=== PATIENT | female | born 1970 | race African-American/Black ===

== ENCOUNTER 2019-06-19 14:33 | Emergency (ER) | payer MEDICAID, OTHER ==
[~2019-06-19] VITALS: Ht 167.6 cm; Wt 107.0 kg
[2019-06-19] MEDS ORDERED: KETOROLAC 30MG/ML VIAL IM ONE (21:15)
[2019-06-19 23:32] VITALS: BP 136/79
== END 2019-06-19 23:43 | disposition home or self-care (01) ==
LOC: ER 17:02
DX: R07.81 Pleurodynia (principal)
CPT/HCPCS: 71101; 96372; 99283; J1885

== ENCOUNTER 2022-04-14 12:50 | Emergency (ER) | payer MEDICAID ==
[~2022-04-14] VITALS: Ht 165.1 cm; Wt 100.0 kg
[2022-04-14 13:32] LABS: BASOPHILS % 0.7 % (0.0-2.0); EOSINOPHILS % 1.3 % (0.0-5.0); HEMATOCRIT. 35.4 % (36.0-48.0); HEMOGLOBIN. 12.1 g/dL (12.0-16.0); MEAN CORPUSCULAR HEMOGLOBIN 25.6 pg (28.0-32.0); MEAN CORPUSCULAR VOLUME 74.7 fL (81.0-99.0); MEAN PLATELET VOLUME 9.1 fl (7.4-10.4); MONOCYTES % 4.3 % (2.0-8.0); NEUTROPHILS % 70.7 % (40.0-76.0); PLATELET 229 x1000/uL (130-400); RED BLOOD CELL COUNT 4.74 mill/uL (4.2-5.4); RED CELL DISTRIBUTION WIDTH 16.2 % (11.6-14.6)
[2022-04-14 13:39] LABS: CHLORIDE 104 mEq/L (98-107)
[2022-04-14] MEDS ORDERED: POTASSIUM CHLORIDE 20MEQ TABLET SR PO NR (14:45)
[2022-04-14 16:50] VITALS: BP 138/66
== END 2022-04-14 17:01 | disposition home or self-care (01) ==
LOC: ER 13:12
DX: R07.89 Other chest pain (principal); E87.6 Hypokalemia; I10 Essential (primary) hypertension; E11.9 Type 2 diabetes mellitus without complications; Z88.1 Allergy status to other antibiotic agents; Z91.041 Radiographic dye allergy status; Z91.040 Latex allergy status; Z88.8 Allergy status to other drugs, medicaments and biological substances
CPT/HCPCS: 36415; 71045; 80053; 83880; 84484; 85025; 93005; 99285

== ENCOUNTER 2025-06-14 22:59 | Inpatient (IN) | payer MEDICAID ==
[~2025-06-14] VITALS: Ht 165.1 cm; Wt 81.6 kg
[2025-06-14 23:05] VITALS: O2SAT 100
[2025-06-14 23:50] LABS: BASOPHILS % 0.7 % (0.0-2.0); EOSINOPHILS % 0.9 % (0.0-5.0); HEMATOCRIT. 32.5 % (36.0-48.0); HEMOGLOBIN. 11.2 g/dL (12.0-16.0); LYMPHOCYTES % 37.6 % (20.0-50.0); MEAN PLATELET VOLUME 8.0 fl (7.4-10.4); MONOCYTES % 4.7 % (2.0-8.0); NEUTROPHILS % 56.1 % (40.0-76.0); PLATELET 280 x1000/uL (130-400); RED BLOOD CELL COUNT 3.84 mill/uL (4.2-5.4); RED CELL DISTRIBUTION WIDTH 20.2 % (11.6-14.6)
[2025-06-15 00:06] LABS: CREATININE 0.7 mg/dL (0.6-1.0); UREA NITROGEN BLOOD 8 mg/dL (9-23)
[2025-06-15 00:07] LABS: TROPONIN I HIGH SENSITIVITY < 4 ng/L (3.0-34)
[2025-06-15 00:08] LABS: ASPARTATE AMINOTRANSFERASE 9 IU/L (<34); BILIRUBIN DIRECT < 0.1 mg/dL (<=3.0)
[2025-06-15 00:09] LABS: BILIRUBIN TOTAL 0.3 mg/dL (0.1-1.0); PROTEIN TOTAL 7.0 g/dL (6.0-8.3)
[2025-06-15] MEDS: ACETAMINOPHEN 325MG TABLET PO ONE (00:41)
[2025-06-15] MEDS: ASPIRIN 325MG EC TABLET PO ONE (00:41)
[2025-06-15] MEDS ORDERED: MORPHINE SULFATE 2 MG/ML INJ (NOT FOR IM USE) IV PRN (00:45)
[2025-06-15] MEDS ORDERED: ACETAMINOPHEN 325MG TABLET PO PRN (00:45)
[2025-06-15] MEDS ORDERED: MAGNESIUM/ALUMINUM HYDROXIDE/SIMETHICONE 30ML UDC PO PRN (00:45)
[2025-06-15] MEDS ORDERED: ZOLPIDEM TARTRATE 5MG TABLET PO PRN (00:45)
[2025-06-15] MEDS: SODIUM CHLORIDE 0.9% 1,000 ML IV SCH (01:36)
[2025-06-15 02:16] LABS: TROPONIN I HIGH SENSITIVITY < 4 ng/L (3.0-34)
[2025-06-15 02:27] VITALS: BP 150/60; PULSE 85; RESP 18; TEMP 36.7516
[2025-06-15] MEDS: HYDROCODONE/ACETAMINOPHEN 5/325MG TABLET PO PRN (03:08)
[2025-06-15] MEDS ORDERED: [UNRECOGNIZED DRUG - CODE] PO (07:06)
[2025-06-15] MEDS ORDERED: GABA-1180 PO (07:06)
[2025-06-15] MEDS ORDERED: LOSA50TA41 PO (07:06)
[2025-06-15] MEDS ORDERED: METF-414 PO (07:06)
[2025-06-15] MEDS ORDERED: HYDR50SO PO (07:06)
[2025-06-15] MEDS ORDERED: OXYC1TAB12 PO (07:06)
[2025-06-15 08:00] VITALS: PULSE 81; RESP 16; TEMP 36.8; O2SAT 96
[2025-06-15] MEDS: ENOXAPARIN 40MG/0.4ML SYR SUBCUT SCH (09:10)
[2025-06-15] MEDS: PANTOPRAZOLE SODIUM 40 MG/VIAL IV SCH (09:11)
[2025-06-15 11:19] LABS: TROPONIN I HIGH SENSITIVITY < 4 ng/L (3.0-34)
[2025-06-15 12:00] VITALS: BP 154/72; PULSE 61; RESP 16; TEMP 36.5; O2SAT 98
[2025-06-15 16:00] VITALS: BP 156/55; PULSE 68; RESP 16; TEMP 36.6; O2SAT 98
[2025-06-15 20:00] VITALS: BP 191/83; PULSE 84; RESP 18; TEMP 36.7; O2SAT 100
[2025-06-15] MEDS: SENNOSIDES/DOCUSATE SOD 8.6/50MG TABLET PO PRN (21:23)
[2025-06-15] MEDS: LOSARTAN 50 MG TABLET PO SCH (21:32)
[2025-06-16] VITALS (9 sets, daily range): BP systolic 133–177; BP diastolic 56–77; PULSE 64–82; RESP 16–20; TEMP 36.4–36.9; O2SAT 10–100
[2025-06-16] MEDS: CLONIDINE 0.1MG TABLET PO PRN (06:41)
[2025-06-16 07:26] LABS: BASOPHILS % 1.2 % (0.0-2.0); EOSINOPHILS % 1.2 % (0.0-5.0); HEMATOCRIT. 31.7 % (36.0-48.0); HEMOGLOBIN. 10.5 g/dL (12.0-16.0); LYMPHOCYTES % 47.7 % (20.0-50.0); MEAN PLATELET VOLUME 8.5 fl (7.4-10.4); MONOCYTES % 3.7 % (2.0-8.0); NEUTROPHILS % 46.2 % (40.0-76.0); PLATELET 237 x1000/uL (130-400); RED BLOOD CELL COUNT 3.66 mill/uL (4.2-5.4); RED CELL DISTRIBUTION WIDTH 20.6 % (11.6-14.6)
[2025-06-16 07:32] LABS: CREATININE 0.6 mg/dL (0.6-1.0)
[2025-06-16 07:33] LABS: UREA NITROGEN BLOOD 7 mg/dL (9-23)
[2025-06-16] MEDS: GABAPENTIN 300MG CAPSULE PO SCH (08:31)
[2025-06-16] MEDS ORDERED: MORPHINE SULFATE 4 MG/ML INJ (FOR IV/IM USE) IV PRN (08:59)
[2025-06-16] MEDS ORDERED: DEXTROSE 50% WATER 50ML SYRINGE IV PRN (09:00)
[2025-06-16] MEDS: INSULIN LISPRO 100 UNITS/ML SUBCUT SCH (09:00)
[2025-06-16] MEDS: BLOOD SUGAR DIAGNOSTIC STRIP TEST SCH (09:00)
[2025-06-16] MEDS ORDERED: NALOXONE HCL 0.4MG/ML VIAL IV PRN (09:15)
[2025-06-16] MEDS: METFORMIN HCL 500MG TABLET PO SCH (09:51)
== END 2025-06-16 21:16 | disposition home or self-care (01) | DRG 198 ==
LOC: ER 22:59 → 5WST 06-15 00:36 → EDBEDREQTM 06-15 00:41 → EDBEDREQ 06-15 00:41 → EDBEDREQDT 06-15 00:41 → ENRESERV 06-15 01:25
PROVIDERS: ADMIT Internal Medicine; ATTEND Internal Medicine
DX: R07.89 Other chest pain (principal); I24.9 Acute ischemic heart disease, unspecified; E11.9 Type 2 diabetes mellitus without complications; I10 Essential (primary) hypertension; G89.3 Neoplasm related pain (acute) (chronic); E78.5 Hyperlipidemia, unspecified; Z85.3 Personal history of malignant neoplasm of breast; Z88.1 Allergy status to other antibiotic agents; Z90.710 Acquired absence of both cervix and uterus; Z79.84 Long term (current) use of oral hypoglycemic drugs; Z79.899 Other long term (current) drug therapy
CPT/HCPCS: 36415; 71045; 78580; 80048; 80076; 82962; 83735; 84443; 84484; 85025; 85379; 93005; 93970; 99285; J1650; J1815; J2470